=== PATIENT | female | born 1970 | race Caucasian/White ===

== ENCOUNTER → 2017-02-09 | Outpatient (CLI) | payer OTHER ==
[~2017-02-09] VITALS: Ht 162.6 cm; Wt 180.2 kg
[~2017-02-09] MED LIST: CHLORHEXIDINE GLUCONATE 2 % 1 PACK (2 CLOTHS) TOPICAL PRN; DO NOT ADM ANY ANTICOAGULANT DRUGS PRN; DULO1CAP3 PO; FAMOTIDINE 20 MG/2 ML VIAL ONE; FOLI1TAB4 PO; FURO40TA PO; GABA300C5 PO; INSULIN HUMAN REGULAR 1,000 UNITS/10 ML VIAL SQ PRN; LACTATED RINGER'S 1000 ML IV PRN; LEVO75TA3 PO; LISI20TA PO; LORA1TAB12 PO; METH2.5T PO; METOPROLOL TARTRATE 25 MG TAB PO PRN; MIDAZOLAM HCL 2 MG/2 ML VIAL ONE; ONDANSETRON HCL 4 MG/2 ML VIAL IV PUSH ONE; POVIDONE IODINE 5% (ANTISEPSIS KIT) 4 APPLICATIONS EACH NARE PRN; PRED5TAB PO; PROPOFOL 200 MG/20 ML AMP IV ONE; SODIUM CHLORID 0.9% 500 ML IV PRN; SPIR25TA PO; VITA10002 PO
[2017-02-09 10:16] VITALS: BP 157/74; PULSE 70; RESP 20; TEMP 98.2; O2SAT 96
--- NOTE | 2017-02-09 11:28 | GIPROC ---
[facility] [address] [facility]. [facility], [id number] EGD PROCEDURE REPORT EXAM DATE: 02/09/2017 PATIENT NAME: Pema Kemp MR #: [id number] BIRTHDATE: 1970 ATTENDING: Osman Dunaway MD ORDER #: [id number] DIRECTOR NURSES' REGISTRY: Jaleel Abdi Stienbarger, Terrie, and Ana Rosa Walker STATUS: outpatient INDICATIONS: The patient is a 46 yr old female here for an EGD due to heartburn PROCEDURE PERFORMED: EGD w/ biopsy MEDICATIONS: Per Anesthesia and None. TOPICAL ANESTHETIC: none CONSENT: The patient understands the risks and benefits of the procedure and understands that these risks include, but are not limited to: sedation, allergic reaction, infection, perforation and/or bleeding. Alternative means of evaluation and treatment include, among others: physical exam, x-rays, and/or surgical intervention. The patient elects to proceed with this endoscopic procedure. medical equipment was checked for proper function. Hand hygiene and appropriate measures for infection prevention was taken. After the risks, benefits and alternatives of the procedure were thoroughly explained, Informed consent was verified, confirmed and timeout was successfully executed by the treatment team. The patient was anesthetized with topical anesthesia and the Pentax EG-[id number] endoscope was introduced through the mouth and advanced to the second portion of the duodenum. Retroflexed views revealed no abnormalities The gastroscope was then slowly withdrawn and removed. No gastritis or esophagitis, there was mild bile reflux noted. ADVERSE EVENTS: There were no complications. IMPRESSIONS: 1. No gastritis or esophagitis, minimal bile reflux 2. Retroflexed views revealed no abnormalities RECOMMENDATIONS: Await biopsy results. Biopsy results will not be ready for 7-10 days. If you don't hear from us in two weeks, call our office for biopsy results. PATIENT CONDITION: fair DISPOSITION: Home REPEAT EXAM: NONE Osman Dunaway MD eSigned: Osman Dunaway MD 02/09/2017 11:28 AM cc:
[2017-02-09 12:49] VITALS: BP 148/70; PULSE 79; RESP 16; TEMP 97.6; O2SAT 96
== END ==
LOC: HEND 09:03
PROVIDERS: ATTEND Surgery
DX: K21.9 Gastro-esophageal reflux disease without esophagitis (principal); I10 Essential (primary) hypertension; M79.7 Fibromyalgia; E66.01 Morbid (severe) obesity due to excess calories; Z68.44 Body mass index [BMI] 60.0-69.9, adult
CPT/HCPCS: 00740; 43239; 88305; 88312; J2250; J2405; J3010; J7120

== ENCOUNTER 2017-04-20 12:20 | Inpatient (IN) | payer OTHER ==
[~2017-04-20] VITALS: Ht 162.6 cm; Wt 176.3 kg
[~2017-04-20 12:20] MED LIST changes: -CHLORHEXIDINE GLUCONATE 2 % 1 PACK (2 CLOTHS) TOPICAL PRN; -DO NOT ADM ANY ANTICOAGULANT DRUGS PRN; -FAMOTIDINE 20 MG/2 ML VIAL ONE; -FOLI1TAB4 PO; -INSULIN HUMAN REGULAR 1,000 UNITS/10 ML VIAL SQ PRN; -LACTATED RINGER'S 1000 ML IV PRN; -METH2.5T PO; -METOPROLOL TARTRATE 25 MG TAB PO PRN; -MIDAZOLAM HCL 2 MG/2 ML VIAL ONE; -ONDANSETRON HCL 4 MG/2 ML VIAL IV PUSH ONE; -POVIDONE IODINE 5% (ANTISEPSIS KIT) 4 APPLICATIONS EACH NARE PRN; -PRED5TAB PO; -PROPOFOL 200 MG/20 ML AMP IV ONE; -SODIUM CHLORID 0.9% 500 ML IV PRN
[2017-05-05] MEDS ORDERED: FOLI400T PO (13:54)
[2017-05-06] MEDS ORDERED: APREPITANT 40 MG CAP PO SCH (06:30)
[2017-05-06] MEDS ORDERED: METOPROLOL TARTRATE 25 MG TAB PO PRN (06:30)
[2017-05-06] MEDS ORDERED: ceFAZolin 2 GM PREMIX 50 ML IV SCH (06:30)
[2017-05-06] MEDS ORDERED: ACETAMINOPHEN 1000 MG/100 ML VIAL IV SCH (06:30)
[2017-05-06] MEDS ORDERED: POVIDONE IODINE 5% (ANTISEPSIS KIT) 4 APPLICATIONS EACH NARE PRN (06:30)
[2017-05-06] MEDS ORDERED: LACTATED RINGER'S 1000 ML IV PRN (06:30)
[2017-05-06] MEDS ORDERED: SCOPOLAMINE 1.5 MG PATCH T-DERMAL SCH (06:30)
[2017-05-06] MEDS ORDERED: INSULIN HUMAN REGULAR 1,000 UNITS/10 ML VIAL SQ PRN (06:30)
[2017-05-06] MEDS ORDERED: ONDANSETRON HCL 4 MG/2 ML VIAL IV PUSH SCH (06:30)
[2017-05-06] MEDS ORDERED: SODIUM CHLORID 0.9% 500 ML IV PRN (06:30)
[2017-05-06] MEDS ORDERED: CHLORHEXIDINE GLUCONATE 2 % 1 PACK (2 CLOTHS) TOPICAL PRN (06:30)
[2017-05-06 08:34] VITALS: BP 132/75; PULSE 68; RESP 18; TEMP 98; O2SAT 95
[2017-05-06] MEDS: metroNIDAZOLE 500 MG INJ 100 ML IV SCH ×2 (10:47→19:02)
[2017-05-06] MEDS ORDERED: PHENYLEPH/NS 1000 MCG/10 ML SYR IV ONE (12:00)
[2017-05-06] MEDS ORDERED: ePHEDrine/NS 25 MG/5 ML SYR IV ONE (12:00)
[2017-05-06] MEDS ORDERED: SODIUM CHLORID 0.9% 500 ML INJ 500 ML IV ONE (12:00)
[2017-05-06] MEDS ORDERED: ONDANSETRON HCL 4 MG/2 ML VIAL IV PUSH ONE (12:00)
[2017-05-06] MEDS ORDERED: PROPOFOL 200 MG/20 ML AMP IV ONE (12:00)
[2017-05-06] MEDS ORDERED: LACTATED RINGER'S 1000 ML INJ 2,000 ML IV ONE (12:00)
[2017-05-06] MEDS ORDERED: MIDAZOLAM HCL 2 MG/2 ML VIAL ONE (12:02)
[2017-05-06] MEDS ORDERED: ceFAZolin INJ 1,000 MG VIAL IV ONE (12:45)
[2017-05-06] MEDS ORDERED: METHYLENE BLUE 10 MG/ML VIAL OTHER ONE (12:55)
[2017-05-06] MEDS ORDERED: fentaNYL CITRATE 250 MCG/5 ML AMP ONE ×2 (14:32)
[2017-05-06] MEDS ORDERED: SUGAMMADEX SODIUM 200 MG/2 ML VIAL IV PUSH ONE ×2 (16:41)
[2017-05-06] MEDS ORDERED: BUPIVACAINE LIPOSOME PF 1.3% 20 ML VIAL INFIL ONE (16:45)
[2017-05-06] MEDS ORDERED: ceFAZolin INJ 1,000 MG VIAL ONE (16:56)
[2017-05-06] MEDS ORDERED: ACETAMINOPHEN 1000 MG/100 ML VIAL IV ONE (16:56)
--- NOTE | 2017-05-06 17:32 | HHI.PR ---
Immediate Post Op Note Procedure Date: May 06, 2017 Pre Op Diagnosis: morbid obesity, bmi 63 Post Op Diagnosis: same Surgeon: Osman Dunaway MD Deboning Team Leader(s): Dr. Alamo Procedure: robotic assist biliopancreatic diversion with duodenal switch Findings: no leak on methylene blue test Complications: none Specimen(s) removed: none Estimated blood loss: 40cc Anesthesia: General Drains: CLEMENT IVF (1999) Patient to: PACU Patient Condition: Good Osman Dunaway MD May 06, 2017 17:32
[2017-05-06] MEDS ORDERED: diphenhydrAMINE HCL ELIXIR 12.5 MG/5 ML CUP PO PRN (17:45)
[2017-05-06] MEDS ORDERED: Post-op Orders (for Pharmacy) MISC OTHER ONE (17:45)
[2017-05-06] MEDS ORDERED: ONDANSETRON HCL 4 MG/2 ML VIAL IV PRN (17:45)
[2017-05-06] MEDS ORDERED: diphenhydrAMINE HCL 50 MG/ML VIAL IV PRN (17:45)
[2017-05-06] MEDS ORDERED: NALOXONE HCL 0.4 MG/ML AMP IV PRN (17:45)
[2017-05-06] MEDS ORDERED: ACETAMINOPHEN 325MG/HYDROcodone 7.5MG/15ML UDC PO PRN (17:45)
[2017-05-06] MEDS ORDERED: ENALAPRILAT 1.25 MG/ML VIAL IV PUSH PRN (17:45)
[2017-05-06] MEDS ORDERED: SODIUM CHLORIDE 0.9% FLUSH 10 ML FLUSH IV FLUSH PRN (17:45)
[2017-05-06] MEDS ORDERED: *HYDROmorphone PF 1 MG VIAL PERIprocedural Use ONLY ONE (18:07)
[2017-05-06] MEDS: HYDROmorphone HCL PCA 6 MG/30 ML IV SCH (19:03)
[2017-05-06 20:00] VITALS: BP 137/63; PULSE 77; RESP 22; TEMP 97.6; O2SAT 97
[2017-05-06] MEDS ORDERED: DO NOT ADM ANY ANTICOAGULANT DRUGS PRN (20:00)
[2017-05-06 22:18] VITALS: O2SAT 97
[2017-05-06] MEDS: METOCLOPRAMIDE HCL 10 MG/2 ML VIAL IV PUSH SCH (22:50)
[2017-05-06] MEDS: ENOXAPARIN SODIUM 40 MG/0.4 ML SYRINGE SQ SCH (22:50)
[2017-05-06] MEDS: SODIUM CHLORIDE 0.9% FLUSH 10 ML FLUSH IV FLUSH SCH (22:51)
[2017-05-06] MEDS: PCA - TOTAL MG DILAUDID DELIVERED PER SHIFT OTHER SCH (22:51)
[2017-05-06 23:32] VITALS: RESP 21
[2017-05-07] VITALS (9 sets, daily range): BP systolic 110–144; BP diastolic 54–74; PULSE 73–84; RESP 16–20; TEMP 96–98.9; O2SAT 90–97
[2017-05-07] MEDS: METOCLOPRAMIDE HCL 10 MG/2 ML VIAL IV PUSH SCH ×3 (02:37→12:43)
[2017-05-07] MEDS: D5-1/2 NS + KCL 20 MEQ INJ 1,000 ML IV SCH ×3 (02:37→22:05)
[2017-05-07] MEDS: metroNIDAZOLE 500 MG INJ 100 ML IV SCH ×3 (02:38→21:56)
[2017-05-07] MEDS: PCA - TOTAL MG DILAUDID DELIVERED PER SHIFT OTHER SCH ×3 (06:00→22:00)
[2017-05-07 07:42] LABS: AUTOMATED NEUTROPHIL # 6.9 TH/MM3 (1.8-7.7); BASOPHIL % 0.2 % (0.0-2.0); EOSINOPHIL # 0.1 TH/MM3 (0-0.4); EOSINOPHIL % 0.6 % (0.0-4.0); HEMATOCRIT 39.9 % (35.0-46.0); HEMO FLAGS DIFF FINAL; LYMPH % 12.3 % (9.0-44.0); LYMPHOCYTE # 1.1 TH/MM3 (1.0-4.8); MEAN CELL VOLUME 95.8 FL (80.0-100.0); MEAN CORPUSCULAR HEMOGLOBIN 30.4 PG (27.0-34.0); MEAN CORPUSCULAR HGB CONC 31.7 % (32.0-36.0); MONO % 9.4 % (0.0-8.0); NEUT % 77.5 % (16.0-70.0); PLATELET COUNT 232 TH/MM3 (150-450); RED BLOOD COUNT 4.16 MIL/MM3 (4.00-5.30); RED CELL DISTRIBUTION WIDTH 14.3 % (11.6-17.2); WHITE BLOOD COUNT 8.9 TH/MM3 (4.0-11.0)
[2017-05-07 08:03] LABS: BICARBONATE 29.9 MEQ/L (21.0-32.0); MAGNESIUM 2.1 MG/DL (1.5-2.5)
[2017-05-07 08:13] LABS: POTASSIUM 4.6 MEQ/L (3.5-5.1)
[2017-05-07] MEDS: SODIUM CHLORIDE 0.9% FLUSH 10 ML FLUSH IV FLUSH SCH ×2 (09:00→21:00)
--- NOTE | 2017-05-07 09:28 | HHI.PR ---
Subjective Subjective Notes no acute issues, c/o pain, no nausea Objective Vitals/I&O Vital Signs Date Time Temp Pulse Resp B/P Pulse Ox O2 Delivery O2 Flow Rate FiO2 05/07/17 08:48 Nasal Cannula 2.00 05/07/17 08:00 98.2 80 16 126/58 93 Labs Laboratory Tests Test 05/07/17 06:52 White Blood Count 8.9 Red Blood Count 4.16 Hemoglobin 12.7 Hematocrit 39.9 Mean Corpuscular Volume 95.8 Mean Corpuscular Hemoglobin 30.4 Mean Corpuscular Hemoglobin 31.7 Concent Red Cell Distribution Width 14.3 Platelet Count 232 Mean Platelet Volume 9.0 Neutrophils (%) (Auto) 77.5 Lymphocytes (%) (Auto) 12.3 Monocytes (%) (Auto) 9.4 Eosinophils (%) (Auto) 0.6 Basophils (%) (Auto) 0.2 Neutrophils # (Auto) 6.9 Lymphocytes # (Auto) 1.1 Monocytes # (Auto) 0.8 Eosinophils # (Auto) 0.1 Basophils # (Auto) 0.0 CBC Comment DIFF FINAL Differential Comment Sodium Level 140 Potassium Level 4.6 Chloride Level 104 Carbon Dioxide Level 29.9 Anion Gap 6 Blood Urea Nitrogen 8 Creatinine 0.87 Estimat Glomerular Filtration 71 Rate Random Glucose 98 Calcium Level 8.7 Magnesium Level 2.1 Cardiovascular: Regular Lungs: Clear Abdomen: Other (soft incisional tenderness, CLEMENT serosang, ) A/P Assessment and Plan POD 1 DS pt doing well overall PLAN OOB PT eval, pt needs to ambulate lovenox for dvt ppx d/c ernesto ok for ice chips check UGI tomorrow Osman Dunaway MD May 07, 2017 09:28
[2017-05-07] MEDS: PANTOPRAZOLE SOD 40 MG DELAYED RELEASE TAB PO SCH (09:39)
--- NOTE | 2017-05-07 14:18 | MP ---
cc: WALDO DUNAWAY MD DATE OF SURGERY: 05/06/2017 PREOPERATIVE DIAGNOSIS Morbid obesity, BMI of 65.7 and rheumatoid arthritis. POSTOPERATIVE DIAGNOSIS Morbid obesity, BMI of 65.7 and rheumatoid arthritis. PROCEDURE PERFORMED Robotic-assisted biliopancreatic diversion with duodenal switch. SURGEON Dr. Waldo Dunaway. RECORD CENTER COORDINATOR Dr. Jackson Alamo. Dr. Alamo was needed due to the complex robotic laparoscopic case. Dr. Alamo assisted with camera control and retraction at paez points of the case. ANESTHESIA GETA. IV FLUIDS 2000 ccs. ESTIMATED BLOOD LOSS 40 ccs. DRAINS 19-Finnish Foreign drain placed in left upper quadrant. FINDINGS No leak with methylene blue. WOUND CLASSIFICATION Clean, contaminated. INDICATION The patient is a 46-year-old female who presented with multiple attempts at weight loss without success. The patient is morbidly obese, BMI of 65 and multiple medical issues and comorbidities including rheumatoid arthritis. Decision was made for robotic-assisted laparoscopic duodenal switch with biliopancreatic diversion. Discussed with the patient in detail. The patient was discussed various options and consented for and wanted to undergo the duodenal switch procedure. DETAILS OF PROCEDURE The patient was taken to operating suite, placed in supine position. She was prepped and draped in the usual sterile fashion after induction of general endotracheal anesthesia. Brief time-out was done stating correct patient, procedure surgical site, we were all in agreement with this. Attention was first directed to the left upper quadrant where a Veress needle placed over stab yazan incision. The abdomen was insufflated to 15 mm pneumoperitoneum. The Veress needle was changed for a 5-mm Visiport trocar. On closer inspection no evidence of injury. Visualization of the abdominal cavity noted minimal adhesions to the gallbladder. Next, several other ports were placed. We put a 12 mm supraumbilical port, the 5 mm left upper quadrant port was changed to a robotic 8 port, a 5 mm subxiphoid port, another 8 mm robotic right upper quadrant port followed by a 12 mm right lower quadrant port and another 8 mm left lower quadrant port. Left lobe of the liver was retracted by Allis clamp through the epigastric port, grasped to the colt of the diaphragm. This was attached in place with a Ray-Ceasar and hemostat. Upon further inspection the left upper quadrant port was somewhat medial and therefore replacement of this port several more centimeters lateral to assist in better port placement and avoid robotic arm collision. Next, the patient was placed in reverse Trendelenburg and air-planed to the left. The terminal ileum was identified. The ileum was walked 250 cm from the ileum and was marked with two stitches, one Vicryl proximal stitch followed by distal Silk suture. After this the patient was then placed in reverse Trendelenburg and the Da James SI was docked. After that we robotically dissected the inferior border of the distal antrum and proximal duodenum to create a window underneath the duodenum. This was done with a long tip grasper, Harmonic and bipolar forceps. Once the window was created a Flushing was placed. After that we went ahead and detached the greater omentum from the greater curvature of the stomach 6 cm from the pylorus all the way up to the angle of His and the fat pad over the angle of His was also incised. Next, a 36-Finnish ViSiGi port was directed toward the antrum by anesthesia. This was used as a calibration device. Next, the optometrist assistant port was used, Ethicon Endo-MAHENDRA stapler green load was done initial to transect and create the sleeve. This was buttressed with seam guard. This was initial green load followed by gold loads all the way up, sparing some space from the angle of His. Next, once we were content with this, the seam guard was sutured to omentum using a 2-0 Stratafix locking suture. Next, the duodenum was transected with a blue load, 3 cm distal to the pylorus. This was done through the window that the Edna was in. Following this we brought the proximal portion of the duodenum to the ileum and did a duodenal ileal anastomosis. This was done with a 2-0 Polysorb and a hand-sewn two layer technique. 2-0 Polysorb was used for the ixydttb-ami-bhiolre layer and then reinforced with Lembert anterior layer. This anterior layer was seromuscular layer only. Next, the anastomosis was then tested with methylene blue without evidence of leaking. 60 ccs were introduced x2 via the ViSiGi port. Also the methylene blue was noted to go through the proximal distal portions of the loop, proving them patent to both the common channel and the biliopancreatic limb. The limb was anchored. Next, suction irrigation was done. Hemostatic agent including snow was placed at near the duodenal stump without evidence of further bleeding. Tisseel sealant was sprayed on all anastomosis staple lines. Next, a drain was placed 19-Finnish round Foreign placed through the right upper quadrant port site and placed in the left upper quadrant across the anastomosis. The stomach was removed through the right lower quadrant 12 mm port. This was done after undocking the robot and reconvening laparoscopically. The fascia to both 12 right lower quadrant and umbilical ports were closed with a suture closure device in a rcxtty-go-setwl fashion of 0 Vicryl. Next, Exparel was injected at all port sites. Next, subcuticular sutures including 4-0 Monocryl were placed at all incision sites. Following this sterile dressings were placed. All lap and instrument counts were correct at the end of the procedure. The patient tolerated the procedure well. There was no intraoperative complication. The patient was extubated and taken stable to PACU. MD ISHAN Anderson/TAE /9:57 PM /1:44 PM
[2017-05-07] MEDS: HYDROmorphone HCL PCA 6 MG/30 ML IV SCH (14:58)
[2017-05-07] MEDS ORDERED: METOCLOPRAMIDE HCL 10 MG/2 ML VIAL IV PUSH PRN (17:45)
[2017-05-07] MEDS: ENOXAPARIN SODIUM 40 MG/0.4 ML SYRINGE SQ SCH (22:02)
[2017-05-08] VITALS (8 sets, daily range): BP systolic 118–138; BP diastolic 58–74; PULSE 66–78; RESP 17–19; TEMP 96.6–99.5; O2SAT 91–98
[2017-05-08] MEDS: PCA - TOTAL MG DILAUDID DELIVERED PER SHIFT OTHER SCH ×4 (05:33→19:25)
[2017-05-08] MEDS: D5-1/2 NS + KCL 20 MEQ INJ 1,000 ML IV SCH ×2 (08:00→23:29)
[2017-05-08] MEDS: SODIUM CHLORIDE 0.9% FLUSH 10 ML FLUSH IV FLUSH SCH ×2 (08:00→19:22)
[2017-05-08] MEDS: PANTOPRAZOLE SOD 40 MG DELAYED RELEASE TAB PO SCH (08:00)
[2017-05-08] MEDS: DEXT 5%-NACL 0.45% 1000 ML INJ 1,000 ML IV SCH ×2 (09:06→16:00)
--- NOTE | 2017-05-08 10:47 | RADRPT ---
EXAM DATE/TIME: 05/08/2017 09:26 [place] COMPARISON: No previous studies available for comparison. INDICATIONS : Post duodenal switch surgery on 05/06/17, diffuse abdominal pain FLUORO TIME: 0.7 minutes IMAGE COUNT: 13 CONTRAST: 1. Liquid E-Z Paque Barium Sulfate (60% w/v, 41% w.w) MEDICAL HISTORY : morbid obesity SURGICAL HISTORY : duodenal switch ENCOUNTER: Initial ACUITY: 2 days PAIN SCORE: 10/10 LOCATION: Bilateral abdomen FINDINGS: Single contrast barium upper GI examination was performed in this patient who is postop. Contrast pas ses freely from the esophagus into the stomach and into the small bowel in the right side of the abdo men. The exact nature of the patient's surgery is not known to us, however it is probably some sort o f a Yogi-en-Y variant. There is no extravasation or stricture. CONCLUSION: No extravasation or stricture. Arnaud Lopez MD on May 08, 2017 at 10:42 Board Certified Radiologist. This report was verified electronically.
--- NOTE | 2017-05-08 12:52 | HHI.PR ---
Subjective Subjective Notes 46yo female POD#2 DS. Sitting up in bed in no acute distress. Pain controlled with medications. Denies any GI complaints Objective Vitals/I&O Vital Signs, 24 Hour Date Time Temp Pulse Resp B/P Pulse Ox O2 Delivery O2 Flow Rate FiO2 05/08/17 12:00 96.8 68 19 129/60 96 05/08/17 11:10 94 Nasal Cannula 3.00 05/08/17 09:12 94 Nasal Cannula 3.00 05/08/17 08:00 96.7 78 19 134/60 93 05/08/17 04:00 99.5 72 18 118/59 91 05/08/17 00:00 99.3 71 18 138/74 98 05/07/17 20:00 98.3 75 18 132/74 90 05/07/17 18:21 96 Nasal Cannula 2.00 05/07/17 16:00 96.0 75 17 117/58 96 05/07/17 14:58 17 05/07/17 14:00 18 Allergies Coded Allergies Iodinated Contrast Media (Verified Allergy, Severe, PT DENIES THIS ALLERGY, 09/11) PT DENIES THIS ALLERGY Sudafed (Verified Allergy, Severe, edema, 05/05/17) Sulfa (Verified Allergy, Severe, PT DOES NOT RECALL REACTION TO SULFA, 05/05/17 ) PT DOES NOT RECALL REACTION TO SULFA Uncoded Allergies sudafed pe ( Allergy, Severe, EDEMA, HIVES, 08/02/13) Recent Impressions Upper GI Series 05/08/17 0800 Signed Impressions: Service Date/Time: Monday, May 08, 2017 09:26 - CONCLUSION: No extravasation or stricture. Arnaud Lopez MD Active Scripts Active Reported Folic Acid 400 Mcg Tab 1,000 Mcg PO DAILY Lorazepam 1 Mg Tab 1 Mg PO DAILY PRN Spironolactone 25 Mg Tab 25 Mg PO DAILY Levothyroxine (Levothyroxine Sodium) 75 Mcg Tab 75 Mcg PO DAILY Furosemide 40 Mg Tab 40 Mg PO DAILY Vitamin B-12 (Cyanocobalamin) 1,000 Mcg Tab 1,000 Mcg PO DAILY Lisinopril-Hctz 20-12.5 Mg Tab 1 Tab PO BID Duloxetine DR (Duloxetine HCl) 60 Mg Capdr 60 Mg PO BID Gabapentin 300 Mg Cap 600 Mg PO DAILY Gabapentin 300 Mg Cap 300 Mg PO EVENING Vital Signs Date Time Temp Pulse Resp B/P Pulse Ox O2 Delivery O2 Flow Rate FiO2 05/08/17 12:00 96.8 68 19 129/60 96 05/08/17 11:10 Nasal Cannula 3.00 Labs Laboratory Tests Test 05/07/17 06:52 White Blood Count 8.9 TH/MM3 Red Blood Count 4.16 MIL/MM3 Hemoglobin 12.7 GM/DL Hematocrit 39.9 % Mean Corpuscular Volume 95.8 FL Mean Corpuscular Hemoglobin 30.4 PG Mean Corpuscular Hemoglobin 31.7 % Concent Red Cell Distribution Width 14.3 % Platelet Count 232 TH/MM3 Mean Platelet Volume 9.0 FL Neutrophils (%) (Auto) 77.5 % Lymphocytes (%) (Auto) 12.3 % Monocytes (%) (Auto) 9.4 % Eosinophils (%) (Auto) 0.6 % Basophils (%) (Auto) 0.2 % Neutrophils # (Auto) 6.9 TH/MM3 Lymphocytes # (Auto) 1.1 TH/MM3 Monocytes # (Auto) 0.8 TH/MM3 Eosinophils # (Auto) 0.1 TH/MM3 Basophils # (Auto) 0.0 TH/MM3 CBC Comment DIFF FINAL Differential Comment Sodium Level 140 MEQ/L Potassium Level 4.6 MEQ/L Chloride Level 104 MEQ/L Carbon Dioxide Level 29.9 MEQ/L Anion Gap 6 MEQ/L Blood Urea Nitrogen 8 MG/DL Creatinine 0.87 MG/DL Estimat Glomerular Filtration 71 ML/MIN Rate Random Glucose 98 MG/DL Calcium Level 8.7 MG/DL Magnesium Level 2.1 MG/DL Radiology Last Impressions Upper GI Series 05/08/17 0800 Signed Impressions: Service Date/Time: Monday, May 08, 2017 09:26 - CONCLUSION: No extravasation or stricture. Arnaud Lopez MD Cardiovascular: Regular Lungs: Clear Abdomen: Post-op tenderness Extremities: Perfused Wound Wound : Wound Location: Abdomen Appearance: Clean & Dry A/P Assessment and Plan Advance to bariatric diet as tolerated. Goal to increase to 60ml Q30 min starting tomorrow Restart home meds Continue with frequent ambulation Discharge Planning D/C home most likely tomorrow Jennifer Pendleton [facility] May 08, 2017 12:52
[2017-05-08] MEDS: LEVOTHYROXINE SODIUM 75 MCG TAB PO SCH (13:18)
[2017-05-08 13:20] LABS: BICARBONATE 29.9 MEQ/L (21.0-32.0); POTASSIUM 3.7 MEQ/L (3.5-5.1)
[2017-05-08 13:25] LABS: AUTOMATED NEUTROPHIL # 5.1 TH/MM3 (1.8-7.7); BASOPHIL % 0.6 % (0.0-2.0); EOSINOPHIL # 0.2 TH/MM3 (0-0.4); EOSINOPHIL % 3.3 % (0.0-4.0); HEMATOCRIT 34.9 % (35.0-46.0); HEMO FLAGS DIFF FINAL; LYMPH % 17.9 % (9.0-44.0); LYMPHOCYTE # 1.3 TH/MM3 (1.0-4.8); MEAN CELL VOLUME 94.2 FL (80.0-100.0); MEAN CORPUSCULAR HEMOGLOBIN 30.9 PG (27.0-34.0); MEAN CORPUSCULAR HGB CONC 32.8 % (32.0-36.0); MONO % 9.1 % (0.0-8.0); NEUT % 69.1 % (16.0-70.0); PLATELET COUNT 223 TH/MM3 (150-450); RED BLOOD COUNT 3.71 MIL/MM3 (4.00-5.30); RED CELL DISTRIBUTION WIDTH 13.9 % (11.6-17.2); WHITE BLOOD COUNT 7.4 TH/MM3 (4.0-11.0)
[2017-05-08] MEDS: ACETAMINOPHEN 325MG/HYDROcodone 7.5MG/15ML UDC PO PRN ×2 (15:31→21:41)
[2017-05-08] MEDS: ENOXAPARIN SODIUM 40 MG/0.4 ML SYRINGE SQ SCH (21:40)
[2017-05-08] MEDS: DULoxetine HCl DR 60 MG CAP PO SCH (21:41)
[2017-05-09] VITALS: BP 125/60; PULSE 74; RESP 18; TEMP 98.4; O2SAT 96
[2017-05-09] MEDS: D5-1/2 NS + KCL 20 MEQ INJ 1,000 ML IV SCH ×2 (03:06→06:01)
[2017-05-09] MEDS: LEVOTHYROXINE SODIUM 75 MCG TAB PO SCH (05:55)
[2017-05-09 08:00] VITALS: BP 111/55; PULSE 76; RESP 16; TEMP 98.3; O2SAT 90
[2017-05-09] MEDS: SODIUM CHLORIDE 0.9% FLUSH 10 ML FLUSH IV FLUSH SCH (09:00)
[2017-05-09] MEDS: DULoxetine HCl DR 60 MG CAP PO SCH (09:30)
[2017-05-09] MEDS: PANTOPRAZOLE SOD 40 MG DELAYED RELEASE TAB PO SCH (09:30)
[2017-05-09] MEDS: ACETAMINOPHEN 325MG/HYDROcodone 7.5MG/15ML UDC PO PRN (09:43)
[2017-05-09 12:00] VITALS: BP 145/61; PULSE 73; RESP 16; TEMP 97.3; O2SAT 83
--- NOTE | 2017-05-09 12:22 | HHI.PR ---
Subjective Subjective Notes Pt comfortable no Cp No SOB pos flatus Objective Vitals/I&O Vital Signs Date Time Temp Pulse Resp B/P Pulse Ox O2 Delivery O2 Flow Rate FiO2 05/09/17 08:00 98.3 76 16 111/55 90 05/08/17 18:39 Nasal Cannula 3.00 Labs Laboratory Tests Test 05/08/17 12:33 White Blood Count 7.4 Red Blood Count 3.71 Hemoglobin 11.5 Hematocrit 34.9 Mean Corpuscular Volume 94.2 Mean Corpuscular Hemoglobin 30.9 Mean Corpuscular Hemoglobin 32.8 Concent Red Cell Distribution Width 13.9 Platelet Count 223 Mean Platelet Volume 9.0 Neutrophils (%) (Auto) 69.1 Lymphocytes (%) (Auto) 17.9 Monocytes (%) (Auto) 9.1 Eosinophils (%) (Auto) 3.3 Basophils (%) (Auto) 0.6 Neutrophils # (Auto) 5.1 Lymphocytes # (Auto) 1.3 Monocytes # (Auto) 0.7 Eosinophils # (Auto) 0.2 Basophils # (Auto) 0.0 CBC Comment DIFF FINAL Differential Comment Hematology Comments Sodium Level 136 Potassium Level 3.7 Chloride Level 102 Carbon Dioxide Level 29.9 Anion Gap 4 Blood Urea Nitrogen 6 Creatinine 0.67 Estimat Glomerular Filtration 96 Rate Random Glucose 102 Calcium Level 8.8 Radiology Last Impressions Upper GI Series 05/08/17 0800 Signed Impressions: Service Date/Time: Monday, May 08, 2017 09:26 - CONCLUSION: No extravasation or stricture. Arnaud Lopez MD Cardiovascular: Regular Lungs: Clear Abdomen: Post-op tenderness Extremities: Perfused Narrative Exam namrata serosang Wound Wound : Wound Location: Abdomen Appearance: Clean & Dry A/P Assessment and Plan POD # 3 S/P lap DS doing well D/C home Jackson Alamo MD May 09, 2017 12:22
[2017-05-09] MEDS: PCA - TOTAL MG DILAUDID DELIVERED PER SHIFT OTHER SCH (14:00)
--- NOTE | 2017-05-12 12:01 | HHI.DS ---
Discharge Summary Admission Date May 06, 2017 at 05:31 Discharge Date: May 09, 2017 Admitting Diagnosis Morbid obesity Procedures laparoscopic Duodenal switch Brief History 46yo female with PMH of Morbid obesity complicated by rheumatoid arthritis, hyperlipidemia, and subclinical hypothyroidism. Presented for elective bariatric surgery CBC/BMP: 05/08/17 1233 05/08/17 1233 Imaging Last Impressions Upper GI Series 05/08/17 0800 Signed Impressions: Service Date/Time: Monday, May 08, 2017 09:26 - CONCLUSION: No extravasation or stricture. Arnaud Lopez MD PE at Discharge [facility] Course Procedure was performed without complication and patient was discharged home in stable condition Pt Condition on Discharge: Stable Discharge Disposition: Discharge Home Discharge Instructions DIET: Follow Instructions for: Bariatric Surgery Diet Activities you can perform: Shower Only-No Bath Activities to Avoid: Strenuous Activity Continued Medications: Duloxetine DR (Duloxetine DR) 60 Mg Capdr 60 MG PO BID #30 Ref 0 CAP Gabapentin (Gabapentin) 300 Mg Cap 300 MG PO EVENING #90 Ref 0 CAP Gabapentin (Gabapentin) 300 Mg Cap 600 MG PO DAILY #60 Ref 0 CAP Levothyroxine (Levothyroxine) 75 Mcg Tab 75 MCG PO DAILY Thyroid #30 Ref 0 TAB Lorazepam (Lorazepam) 1 Mg Tab 1 MG PO DAILY PRN ANXIETY Ref 0 TAB Spironolactone (Spironolactone) 25 Mg Tab 25 MG PO DAILY #30 Ref 0 TAB Jennifer Pendleton May 12, 2017 12:01
== END 2017-05-09 14:33 | disposition home or self-care (01) | DRG 621 ==
LOC: HSDI 05-06 05:31 → N07B 05-06 19:18
PROVIDERS: ADMIT Surgery; ATTEND Surgery
PROC: 0DB64Z3 Excision of Stomach, Percutaneous Endoscopic Approach, Vertical (ICD-10-PCS; 2017-05-06)
PROC: 8E0W4CZ Robotic Assisted Procedure of Trunk Region, Percutaneous Endoscopic Approach (ICD-10-PCS; 2017-05-06)
PROC: 0D194ZB Bypass Duodenum to Ileum, Percutaneous Endoscopic Approach (ICD-10-PCS; principal; 2017-05-06 12:15)
DX: E66.01 Morbid (severe) obesity due to excess calories (principal); I10 Essential (primary) hypertension; J44.9 Chronic obstructive pulmonary disease, unspecified; E03.9 Hypothyroidism, unspecified; M06.9 Rheumatoid arthritis, unspecified; E78.5 Hyperlipidemia, unspecified; Z68.44 Body mass index [BMI] 60.0-69.9, adult; Z87.891 Personal history of nicotine dependence
CPT/HCPCS: 74241; 80048; 82150; 83735; 85025; 94150; C9290; J0131; J0690; J1170; J1650; J2250; J2370; J2405; J2765; J3010; J3480; J7040; J7120; J8501